=== PATIENT | female | born 2005 | race Caucasian/White ===

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

== ENCOUNTER → 2023-05-06 | Outpatient (CLI) | payer OTHER ==
--- NOTE | 2023-05-07 07:16 | US ---
EXAMINATION TYPE: US thyroid st tissue head/neck DATE OF EXAM: 05/06/2023 COMPARISON: 03/26/2022 CLINICAL INDICATION: Female, 18 years old with history of R94.6 R22.0 SWELLING MA E04.1 NONTOXIC SING LE THYROID NODULE; Follow up thyroid nodules. GLAND SIZE: Right Lobe: 5.2 x 3.5 x 2.9 cm Overall Parenchyma: homogenous Left Lobe: 3.8 x 1.5 x 1.7 cm Overall Parenchyma: homogeneous Isthmus Thickness: 0.2 cm NODULES RIGHT: # of nodules measured on right: 1 1. 4.4 X 3.7 x 2.9 cm, mid mid, Prior size: 4.1 x 3.4 x 3.0 cm TIRADS Score: 3 TIRADS Category 3: Mildly Suspicious Composition: Mixed cystic and solid (1 point). Echogenicity: Hyperechoic or isoechoic (1 point). Shape: Wider than tall (0 points). Margin: Smooth (0 points). Echogenic foci: Macrocalcifications (1 point) Recommendation: If >2.5cm: FNA; If >1.5cm: Follow up at 1,3,5 years LEFT: # of nodules measured on left: 1 1. 3.3 X 1.7 x 1.7 cm, mid mid, Prior size: 3.2 x 1.3 x 1.6 cm TIRADS Score: 3 TIRADS Category 3: Mildly Suspicious Composition: Mixed cystic and solid (1 point). Echogenicity: Hypoechoic (2 points). Shape: Wider than tall (0 points). Margin: Smooth (0 points). Echogenic foci: None or large comet-tail artifacts (0 points) Recommendation: If >2.5cm: FNA; If >1.5cm: Follow up at 1,3,5 years ISTHMUS: # of nodules measured in the isthmus: 0 Bilateral neck scanned, no evidence of lymphadenopathy. Bilateral thyroid nodules that meet criteria for biopsy by size criteria. IMPRESSION: Bilateral thyroid nodules which meet criteria for biopsy but if not already performed.
== END | disposition home or self-care (01) ==
LOC: RADUSWWP 15:38
PROVIDERS: ATTEND Family Medicine
DX: E04.2 Nontoxic multinodular goiter (principal); R94.6 Abnormal results of thyroid function studies; R22.0 Localized swelling, mass and lump, head
CPT/HCPCS: 76536

== ENCOUNTER 2023-07-30 12:35 | Day surgery (SDC) | payer OTHER ==
[2023-07-30 13:26] VITALS: RESP 16; TEMP 98
[2023-07-30 14:06] VITALS: BP 110/69; PULSE 69
--- NOTE | 2023-07-30 14:07 | US ---
ULTRASOUND GUIDED FNA THYROID BIOPSY: CLINICAL HISTORY: Request for right and left thyroid nodule FINDINGS: The procedure was explained to the patient. The risks, complications, benefits and alternatives were discussed and any questions were answered. Informed consent was obtained. Patient was placed supin e on the ultrasound table and prepped and draped in the usual sterile fashion. Utilizing a 25 gauge needle, five passes were made into the into the requested right and left thyroid nodules. Patient was stable throughout the procedure. Pathology is pending. All elements of maximal barrier technique were utilized. IMPRESSION: 1. Successful ultrasound guided FNA thyroid biopsy. Note is made that the right nodularity is heavil y calcified and the left nodule was predominantly fluid both of which can result in the lower diagnos tic yield by FNA biopsy.
== END 2023-07-30 14:04 | disposition home or self-care (01) ==
LOC: RADPROMAIN 12:35
PROVIDERS: ATTEND Surgery
DX: E04.2 Nontoxic multinodular goiter (principal)
CPT/HCPCS: 10005; 10006; 88173; 88305

== ENCOUNTER → 2024-03-17 | Outpatient (CLI) | payer OTHER ==
--- NOTE | 2024-03-18 02:53 | US ---
EXAMINATION TYPE: US venous doppler duplex LE DATE OF EXAM: 03/17/2024 2:02 PM COMPARISON: NONE CLINICAL INDICATION: Female, 18 years old with history of M79.662 PAIN IN LLE R22.42 SWELLING, MASS A ND LUMP; Pain left leg when walking for 1 week. Palpable left lower leg SIDE PERFORMED: left TECHNIQUE: The lower extremity deep venous system is examined utilizing real time linear array sonog helena with graded compression, doppler sonography and color-flow sonography. VESSELS IMAGED: Common Femoral Vein Deep Femoral Vein Greater Saphenous Vein * Femoral Vein Popliteal Vein Small Saphenous Vein * Proximal Calf Veins (* superficial vessels) Grayscale, color doppler, spectral doppler imaging performed of the deep veins of the left lower extr emity. There is normal flow, compressibility, vascular waveforms. Left Leg: No evidence of DVT. Ovoid hyperechoic area left calf soft tissues within patient's area of concern = 1.3 x 0.6 x 1.4cm. No internal color flow identified. No organized fluid collection demons trated. IMPRESSION: 1. No deep venous thrombosis of the left lower extremity. 2. Nonspecific hyperechoic lesion within the left calf soft tissues measuring up to 1.4 cm. Etiologie s include lipoma versus other such as a hematoma. Consider tissue sampling versus monitoring.
== END | disposition home or self-care (01) ==
LOC: RADUSWWP 13:33
PROVIDERS: ATTEND Family Medicine
DX: R22.42 Localized swelling, mass and lump, left lower limb (principal); M79.662 Pain in left lower leg